=== PATIENT | male | born 1980 | race Caucasian/White ===

== ENCOUNTER 2018-05-26 20:03 | Observation (INO) | payer MEDICAID, OTHER ==
[2018-05-26] MEDS: ASPIRIN 325 MG TAB PO (22:36)
[2018-05-26] MEDS: NITROGLYCERIN 2% 1 GM OINT PKT TD (22:37)
[2018-05-26] MEDS: ONDANSETRON 4 MG INJ IV (22:50)
[2018-05-26 22:51] LABS: ADD MAN DIFF? NO
[2018-05-26] MEDS: morphine 4 MG/ML VIAL IV (22:51)
[2018-05-26 22:53] LABS: BASOPHIL # 0.1 10^3/ul (0.0-0.1); BASOPHILS % 0.8 % (0.0-2.0); EOSINOPHILS # 0.4 10^3/ul (0.0-0.5); EOSINOPHILS % 4.6 % (0.0-7.0); HEMOGLOBIN 15.1 g/dl (14.0-18.0); LYMPHOCYTES # 3.2 10^3/ul (0.8-2.9); LYMPHOCYTES % 36.3 % (15.0-51.0); MEAN CORPUSCULAR HEMOGLOBIN 29.5 pg (29.0-33.0); MEAN CORPUSCULAR HGB CONC 35.1 g/dl (32.0-37.0); MEAN CORPUSCULAR VOLUME 84.1 fl (82.0-101.0); MEAN PLATELET VOLUME 9.7 fl (7.4-10.4); MONOCYTE # 0.8 10^3/ul (0.3-0.9); MONOCYTES % 8.7 % (0.0-11.0); NEUTROPHIL # 4.4 10^3/ul (1.6-7.5); NEUTROPHILS % 49.3 % (39.0-77.0); PLATELET COUNT 235 10^3/UL (140-415); RED BLOOD COUNT 5.11 10^6/ul (4.70-6.10)
[2018-05-26 22:53] LABS: WHITE BLOOD COUNT 8.9 10^3/ul (4.8-10.8)
[2018-05-26 23:25] LABS: ALANINE AMINOTRANSFERASE 97 IU/L (13-69); ALBUMIN 4.1 g/dl (3.3-4.9); ALBUMIN/GLOBULIN RATIO 1.13; ALKALINE PHOSPHATASE 130 IU/L (42-121); ANION GAP 10 (5-13); ASPARTATE AMINO TRANSFERASE 91 IU/L (15-46); BILIRUBIN,INDIRECT 0.2 mg/dl (0-1.1); BILIRUBIN,TOTAL 0.2 mg/dl (0.2-1.3); BLOOD UREA NITROGEN 10 mg/dl (7-20); CALCIUM 9.3 mg/dl (8.4-10.2); CARBON DIOXIDE 26 mmol/L (21-31); CHLORIDE 105 mmol/L (97-110); CREATININE 0.62 mg/dl (0.61-1.24); Estimated GFR > 60 mL/min (>60); GLUCOSE 138 mg/dl (70-220); SODIUM 141 mmol/L (135-144); TOTAL PROTEIN 7.7 g/dl (6.1-8.1)
[2018-05-26 23:36] LABS: TROPONIN-I < 0.012 ng/ml (0.000-0.120)
[2018-05-27] MEDS ORDERED: NITROGLYCERIN (SL) 0.4 MG TAB SL (00:30)
[2018-05-27] MEDS ORDERED: morphine 2 MG INJ IV (00:30)
[2018-05-27] MEDS ORDERED: BISACODYL (EC) 5 MG TAB PO (00:30)
[2018-05-27] MEDS ORDERED: NACL 0.9% 3 ML SYG IV (00:30)
[2018-05-27] MEDS ORDERED: DOCUSATE SODIUM 100 MG CAP PO (00:30)
[2018-05-27] MEDS ORDERED: ONDANSETRON 4 MG INJ IV ×2 (00:30)
[2018-05-27] MEDS ORDERED: ACETAMINOPHEN 325 MG TAB PO (00:30)
[2018-05-27] MEDS: KETOROLAC 30 MG INJ IV (00:33)
[2018-05-27] MEDS: SOD CHLORIDE 0.9% 1,000 ML IV (03:00)
[2018-05-27] MEDS: ENALAPRILAT 1.25 MG INJ IV (03:00)
[2018-05-27] MEDS: ACETAMINOPHEN 325 MG TAB PO (03:00)
[2018-05-27 03:41] LABS: CREATINE KINASE 178 IU/L (23-200)
[2018-05-27 03:53] LABS: CK INDEX 0.6; CK-MB 1.12 ng/ml (0.0-2.4); TROPONIN-I < 0.012 ng/ml (0.000-0.120)
[2018-05-27] MEDS: ASPIRIN 81 MG TAB PO (09:35)
[2018-05-27 10:50] LABS: CREATINE KINASE 137 IU/L (23-200)
[2018-05-27 11:02] LABS: CK INDEX 0.7; CK-MB 0.91 ng/ml (0.0-2.4); TROPONIN-I < 0.012 ng/ml (0.000-0.120)
[2018-05-27 11:10] LABS: HEMOGLOBIN A1C 5.1 % (0-5.9)
[2018-05-27 11:22] LABS: CHOL/HDL RATIO 2.8 RATIO; LDL CHOLESTEROL,CALCULATED 106 mg/dl
[2018-05-27 11:23] LABS: HDL CHOLESTEROL 72 mg/dl (27-67); TRIGLYCERIDES 120 mg/dl (0-149)
[2018-05-27 11:23] LABS: CHOLESTEROL 202 mg/dl (100-200)
== END 2018-05-27 13:10 | disposition home or self-care (01) ==
LOC: E/R 20:03 → TEL 05-27 00:18
DX: R07.89 Other chest pain (principal); I16.0 Hypertensive urgency; I10 Essential (primary) hypertension; E78.5 Hyperlipidemia, unspecified; E66.01 Morbid (severe) obesity due to excess calories; Z68.41 Body mass index [BMI] 40.0-44.9, adult; Z79.82 Long term (current) use of aspirin
CPT/HCPCS: 36415; 71045; 76705; 80053; 80061; 82550; 82553; 83036; 84484; 85025; 93005; 93306; 96374; 96375; 99285-25; G0378